=== PATIENT | female | born 1950 | race Caucasian/White ===

== ENCOUNTER → 2018-08-03 | Outpatient (CLI) | payer OTHER | LOC: FIMAGING 12:29 ==

== ENCOUNTER → 2018-08-08 | Outpatient (CLI) | payer OTHER ==
[~2018-08-08] MED LIST: IOPAMIDOL (ISOVUE 370) 100 ML BTL IV ONE; NITROGLYCERIN 0.4 MG BTL SL ONE
== END ==
LOC: FIMAGING 08:22
PROVIDERS: ATTEND Internal Medicine Cardiovascular Disease
DX: I25.10 Atherosclerotic heart disease of native coronary artery without angina pectoris (principal)
CPT/HCPCS: 75574; Q9967; 82565-PO

== ENCOUNTER → 2018-08-09 | Outpatient (CLI) | payer OTHER | LOC: BRMIMAGING 10:47 | PROVIDERS: ATTEND Internal Medicine Hematology & Oncology | DX: Z13.820 Encounter for screening for osteoporosis (principal); E07.9 Disorder of thyroid, unspecified; Z78.0 Asymptomatic menopausal state; Z85.3 Personal history of malignant neoplasm of breast; Z87.81 Personal history of (healed) traumatic fracture ==

== ENCOUNTER 2018-09-17 07:54 | Day surgery (SDC) | payer OTHER ==
[2018-09-17] MEDS ORDERED: ASPIRIN EC 325 MG TAB PO ONE ×2 (07:57→08:23)
[2018-09-17] MEDS ORDERED: diphenhydrAMINE 25 MG CAP PO ONE ×2 (07:57→08:22)
[2018-09-17] MEDS ORDERED: FAMOTIDINE 20 MG TAB PO ONE (07:57)
[2018-09-17] MEDS ORDERED: DIAZEPAM 5 MG TAB PO ONE (07:57)
[2018-09-17] MEDS ORDERED: NS 1,000 ML IV ONE (07:57)
--- NOTE | 2018-09-17 08:18 | PDPROPOC ---
Sedation Plan of Care Sedation Plan of Care: vital signs stable, mental status noted, patient educated of risks, benefits, alternatives, patient can tolerate sedation ASA Classification: ASA 2 Planned drugs: fentanyl, midazolam Mallampati Score: Class 2 Mallampati Reference Image: Patient passed 3-3-2 rule?: Yes
--- NOTE | 2018-09-17 08:18 | PDGENHP ---
History & Physical Chief Complaint: VT, CAD History of Present Illness: 68 yo F with VT on ambulatory monitor and during stress echo. CT coronary angiogram shows moderate 3VD. Needs coronary angiogram for further evaluation Pertinent Past, Social, Family History: reviewed Cardiorespiratory Assessment: stable for conscious sedation. Has had nausea/ vomiting with versed in the past. Monitor closely
[2018-09-17] MEDS ORDERED: FAMOTIDINE 20 MG TAB ONE (08:22)
[2018-09-17] MEDS ORDERED: DIAZEPAM 5 MG TAB ONE (08:25)
[2018-09-17 08:46] LABS: PLATELET COUNT 214 10^3/uL (150-400)
[2018-09-17 08:54] LABS: INR 0.96 (0.83-1.16); PROTIME(PATIENT) 12.4 SEC (12.0-15.0)
[2018-09-17] MEDS ORDERED: LIDOCAINE 1% 300 MG/30 ML SDV ONE (09:49)
[2018-09-17] MEDS ORDERED: fentaNYL 100 MCG/2 ML INJ ONE (09:49)
[2018-09-17] MEDS ORDERED: MIDAZOLAM 2 MG/2 ML VIAL ONE (09:50)
[2018-09-17] MEDS ORDERED: IOPAMIDOL (ISOVUE-370) 150 ML BTL IV ONE (09:50)
[2018-09-17] MEDS ORDERED: ONDANSETRON 4 MG/2 ML VIAL ONE (09:52)
[2018-09-17] MEDS ORDERED: ATROPINE SULFATE 1 MG/10 ML SYR IVP PRN (10:47)
[2018-09-17] MEDS ORDERED: NITROGLYCERIN 0.4 MG BTL SL PRN (10:47)
[2018-09-17] MEDS ORDERED: ONDANSETRON 4 MG/2 ML VIAL IVP PRN (10:47)
--- NOTE | 2018-09-17 10:51 | PDDXCAT ---
Diagnostic Cath Note - . Date: 09/17/18 Olive Packer: Luz Marina Indication: other (CP, known CAD, VT) - Procedure Access: right groin Procedure: left heart catheterization, coronary angiography, left ventriculogram - Materials Left Heart Cath size: 6F Left Heart Cath materials: standard multipack (JL4, JR4, pigtail) - Findings-Left Heart Catheterization LM: normal and bifurcates into the LAD and LCx. No sig CAD LAD: Medium sized vessel that reaches the apex. Serial 40% lesions with worst stenosis 50% in the mid vessel. There is one diagonal vessel with 30% ostial stenosis LCX: Codominant. one OM1. Minimal luminal irregularities in the LCx RCA: Codominant. 30% proximal stenosis EDP: 12 LVEF: 50 Wall motion: normal - Findings-Right Heart Catheterization AO: 150/80. No Complications: none Estimated blood loss: <50ml Closure method: Angioseal Assessment: Moderate LAD/diagonal disease and mild RCA disease. Low normal LVEF. Plan: Continue aggressive risk factor modification
--- NOTE | 2018-09-17 17:27 | CPEKG ---
Test Reason : OPEN Blood Pressure : / mmHG Vent. Rate : 062 BPM Atrial Rate : 062 BPM P-R Int : 114 ms QRS Dur : 086 ms QT Int : 440 ms P-R-T Axes : -04 023 002 degrees QTc Int : 447 ms Sinus rhythm Borderline T abnormalities, inferior leads Confirmed by Kam Mann ([id number]) on 09/17/2018 5:26:25 PM Referred By: Vanna Aguilera Confirmed By:Kam Mann
== END 2018-09-17 14:54 | disposition home or self-care (01) ==
LOC: FCATH 07:54
PROVIDERS: ATTEND Internal Medicine Cardiovascular Disease
PROC: 4A023N7 Measurement of Cardiac Sampling and Pressure, Left Heart, Percutaneous Approach (ICD-10-PCS; principal; 2018-09-17)
PROC: B2151ZZ Fluoroscopy of Left Heart using Low Osmolar Contrast (ICD-10-PCS; principal; 2018-09-17)
PROC: B2111ZZ Fluoroscopy of Multiple Coronary Arteries using Low Osmolar Contrast (ICD-10-PCS; principal; 2018-09-17)
DX: I47.2 Ventricular tachycardia (principal); I25.10 Atherosclerotic heart disease of native coronary artery without angina pectoris
CPT/HCPCS: C1760; J1644; J2250; J2405; J3010; Q9967